=== PATIENT | female | born 1995 | race Hispanic/Latino ===

== ENCOUNTER 2020-07-21 22:37 | Emergency (ER) | payer SELFPAY ==
[2020-07-21] MEDS ORDERED: HYDROCODONE/APAP 5/325 MG TAB ONE (23:15)
--- NOTE | 2020-07-22 00:04 | EDPHYS ---
Physician Documentation [facility] Name: Kelly Mcmahon Age: 24 yrs Sex: Female : 1995 Arrival Date: 07/21/2020 Time: 22:41 Bed 15 Private MD: ED Physician Shawn Brennan HPI: 07/21 23:59 This 24 yrs old Female presents to ER via Ambulatory with complaints of Finger jmm Injury. 23:59 The patient or guardian reports injury, pain. Onset: The symptoms/episode jmm began/occurred acutely, just prior to arrival. Modifying factors: The symptoms are alleviated by nothing, the symptoms are aggravated by nothing. Associated signs and symptoms: Pertinent negatives: fever, numbness distally, tingling distally. This is a 24 year old female with a history of PE, hypothyroidism that presents to the ED with complaints of right 3rd finger pain. Injury occurred while changing clothes. Denies other injury. . 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 - Social history:: Smoking status: Patient denies any tobacco usage or history of. ROS: 23:59 Constitutional: Negative for fever, chills, and weight loss, Cardiovascular: Negative jmm for chest pain, palpitations, and edema, Respiratory: Negative for shortness of breath, cough, wheezing, and pleuritic chest pain. 23:59 MS/extremity: Positive for injury or acute deformity. 23:59 All other systems are negative. Exam: 23:59 Constitutional: This is a well developed, well nourished patient who is awake, alert, jmm and in no acute distress. Head/Face: atraumatic. Eyes: EOMI, no conjunctival erythema appreciated ENT: Moist Mucus Membranes Neck: Trachea midline, Supple Chest/axilla: Normal chest wall appearance and motion. Cardiovascular: Regular rate and rhythm. No edema appreciated Respiratory: Normal respirations, no respiratory distress appreciated Abdomen/GI: Non distended, soft Back: Normal ROM Skin: General appearance color normal 23:59 Musculoskeletal/extremity: right 3rd dip ttp, < 2 sec dist cap refill, NVI. 23:59 Skin: Appearance: Color: normal in color. 23:59 Neuro: Orientation: is normal, Mentation: is normal, Memory: is normal. 23:59 Psych: Behavior/mood is pleasant, cooperative. Vital Signs: 23:00 BP 110 / 84; Pulse 80; Resp 16 S; Temp 99(TE); Pulse Ox 100% on R/A; Weight 65.77 kg bb (R); Height 5 ft. 4 in. (162.56 cm) (R); Pain 710; 23:00 Body Mass Index 24.89 (65.77 kg, 162.56 cm) bb MDM: 22:55 Patient medically screened. [facility] 07/22 00:02 Data reviewed: vital signs, nurses notes. Counseling: I had a detailed discussion with ramon the patient and/or guardian regarding: the historical points, exam findings, and any diagnostic results supporting the discharge/admit diagnosis, radiology results, the need for outpatient follow up, to return to the emergency department if symptoms worsen or persist or if there are any questions or concerns that arise at home. 07/21 22:56 Order name: Hand Right 3 View XRAY [facility] 07/21 22:56 Order name: Finger Splint; Complete Time: 00:18 [facility] Administered Medications: 07/21 23:03 Drug: [place] 5 mg-325 mg 1 tabs Route: PO; jd3 07/22 00:18 Follow up: Response: No adverse reaction ll2 Disposition: 03:21 Co-signature as Attending Physician, Shwan Brennan MD. rn Disposition: 07/22/20 00:03 Discharged to Home. Impression: Finger Fracture. - Condition is Stable. - Discharge Instructions: Finger Fracture. - Prescriptions for Ultracet 37.5- 325 mg Oral Tablet - take 1 tablet by ORAL route every 6 hours - for up to 5 days; do not exceed 8 tablets per day.; 20 tablet. - Medication Reconciliation Form, Thank You Letter, Antibiotic Education, Prescription Opioid Use form. - Follow up: Private Physician; When: 2 - 3 days; Reason: Recheck today's complaints, Continuance of care, Re-evaluation by your physician. Signatures: Dispatcher [employer] EDRafael Orantes PA PA jmm Ballard, Falguni, RN RN Shawn Pelayo MD MD rn Davies, Jonathon, RN RN jd3 Lanette Linares RN RN ll2 Corrections: (The following items were deleted from the chart) 00:18 00:03 07/22/2020 00:03 Discharged to Home. Impression: Finger Fracture. Condition is ll2 Stable. Forms are Medication Reconciliation Form, Thank You Letter, Antibiotic Education, Prescription Opioid Use. Follow up: Private Physician; When: 2 - 3 days; Reason: Recheck today's complaints, Continuance of care, Re-evaluation by your physician. ramon
--- NOTE | 2020-07-22 00:04 | ER ---
Nurse's Notes [facility] Name: Kelly Mcmahon Age: 24 yrs Sex: Female : 1995 Arrival Date: 07/21/2020 Time: 22:41 Bed 15 Private MD: Diagnosis: Finger Fracture Presentation: 07/21 23:00 Chief complaint: Patient states: she accidently caught her right middle finger in her bb shirt and injured it now it is swollen and painful. Coronavirus screen: At this time, the client does not indicate any symptoms associated with coronavirus-19. Ebola Screen: No symptoms or risks identified at this time. Initial Sepsis Screen: Does the patient meet any 2 criteria? No. Patient's initial sepsis screen is negative. Does the patient have a suspected source of infection? No. Patient's initial sepsis screen is negative. Risk Assessment: Do you want to hurt yourself or someone else? Patient reports no desire to harm self or others. Onset of symptoms was July 21, 2020. 23:00 Method Of Arrival: Ambulatory bb 23:00 Acuity: DUNG 4 bb Triage Assessment: 07/22 00:16 General: Appears in no apparent distress. Pain:. ll2 00:17 Injury Description: pt fell while middle finger was stuck inside shirt. 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 - Social history:: Smoking status: Patient denies any tobacco usage or history of. Screenin/22 00:16 Abuse screen: Denies threats or abuse. Nutritional screening: No deficits noted. ll2 Tuberculosis screening: No symptoms or risk factors identified. Fall Risk None identified. Assessment: 07/21 23:15 General: Appears in no apparent distress. uncomfortable, Behavior is calm, cooperative, jd3 appropriate for age. Pain: Complains of pain in palmar aspect of distal phalanx of right middle finger Quality of pain is described as sharp, tender. Neuro: Level of Consciousness is awake, alert, obeys commands, Oriented to person, place, time, situation. Cardiovascular: Denies Capillary refill < 3 seconds Patient's skin is warm and dry. Respiratory: Airway is patent Respiratory effort is even, unlabored, Respiratory pattern is regular, symmetrical, Denies cough, shortness of breath. GI: No signs and/or symptoms were reported involving the gastrointestinal system. : No signs and/or symptoms were reported regarding the genitourinary system. EENT: No signs and/or symptoms were reported regarding the EENT system. Derm: Skin is intact, Skin is dry, Skin is normal, Skin temperature is warm Bruising that is dark purple, on palmar aspect of distal phalanx of right middle finger. Musculoskeletal: Circulation, motion, and sensation intact. Range of motion: intact in all extremities. 23:55 Reassessment: Patient appears in no apparent distress at this time. Patient and/or jd3 family updated on plan of care and expected duration. Pain level reassessed. Patient is alert, oriented x 3, equal unlabored respirations, skin warm/dry/pink. awaiting X-ray results. Vital Signs: 23:00 BP 110 / 84; Pulse 80; Resp 16 S; Temp 99(TE); Pulse Ox 100% on R/A; Weight 65.77 kg bb (R); Height 5 ft. 4 in. (162.56 cm) (R); Pain 7/10; 23:00 Body Mass Index 24.89 (65.77 kg, 162.56 cm) bb ED Course: 22:41 Patient arrived in ED. am2 22:49 Rafael Wyman PA is PHCP. [facility] 22:49 Shawn Brennan MD is Attending Physician. [facility] 22:54 Tato Paredes RN is Primary Nurse. jd3 23:13 Triage completed. bb 23:15 Arm band placed on Patient placed in an exam room, on a stretcher, on pulse oximetry. bb Family accompanied patient. 07/22 00:10 Hand Right 3 View XRAY In Process Unspecified. EDMS 00:16 Patient has correct armband on for positive identification. Call light in reach. Side ll2 rails up X 1. Adult w/ patient. Pulse ox on. NIBP on. 00:16 No provider procedures requiring assistance completed. Patient did not have IV access ll2 during this emergency room visit. Administered Medications: 07/21 23:03 Drug: [place] 5 mg-325 mg 1 tabs Route: PO; jd3 07/22 00:18 Follow up: Response: No adverse reaction ll2 Outcome: 00:03 Discharge ordered by MD. navarro 00:17 Discharged to home ambulatory. ll2 00:17 Condition: stable 00:17 Discharge instructions given to patient, family, Instructed on discharge instructions, follow up and referral plans. medication usage, Demonstrated understanding of instructions, follow-up care, medications, Prescriptions given X 1. 00:18 Patient left the ED. ll2 Signatures: Dispatcher [employer] EDMS Rafael Wyman PA PA jmm Ballard, Brenda, RN RN Marylou Barton Jonathon, RN RN jLanette Branch RN RN ll2
[2020-07-22 00:32] VITALS: BP 110/84; TEMP 99; O2SAT 100
--- NOTE | 2020-07-22 08:07 | RAD REPORT ---
EXAM DESCRIPTION: RAD - Hand Right 3 View - 07/22/2020 12:03 am CLINICAL HISTORY: Right hand pain status post injury FINDINGS: Small transverse lucency is present in the base third distal phalanx seen on frontal view. This is equivocal for a small nondisplaced fracture. No dislocation
== END 2020-07-22 00:18 | disposition home or self-care (01) ==
LOC: EDBD 22:37 → ER 22:37
PROC: 2W3JX1Z Immobilization of Right Finger using Splint (ICD-10-PCS; principal; 2020-07-22)
DX: S62.632A Displaced fracture of distal phalanx of right middle finger, initial encounter for closed fracture (principal); E03.9 Hypothyroidism, unspecified; Z88.6 Allergy status to analgesic agent
CPT/HCPCS: 99284

== ENCOUNTER 2023-01-24 00:24 | Emergency (ER) | payer SELFPAY ==
[2023-01-24] MEDS ORDERED: LIDOCAINE VISCOUS 2% SOLN 15 ML UDC ONE (01:16)
--- NOTE | 2023-01-24 01:16 | ER ---
Nurse's Notes [facility] Name: Kelly Mcmahon Age: 27 yrs Sex: Female : 1995 Arrival Date: 01/24/2023 Time: 00:24 Bed IW1 Private MD: Diagnosis: Unspecified lesions of oral mucosa Presentation: 01/24 00:59 Chief complaint: Patient states: My mouth is sore. I cant see it very well in the kd3 mirror. It feels sore on the inside on my lower lip. It started around 3 or 4 today. I did not bite myself or anything. Coronavirus screen: Vaccine status: Patient reports being unvaccinated. Ebola Screen: No symptoms or risks identified at this time. 00:59 Method Of Arrival: Ambulatory kd3 01:05 Initial Sepsis Screen: Does the patient meet any 2 criteria? No. Patient's initial kd3 sepsis screen is negative. Does the patient have a suspected source of infection? No. Patient's initial sepsis screen is negative. Risk Assessment: Do you want to hurt yourself or someone else? Patient reports no desire to harm self or others. Onset of symptoms was January 24, 2023. 01:05 Acuity: DUNG 4 kd3 Triage Assessment: 01:04 General: Appears in no apparent distress. Behavior is calm, cooperative. Pain: kd3 Complains of pain in mouth. 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 - Social history:: Smoking status: Patient denies any tobacco usage or history of. Screenin: [facility] ED Fall Risk Assessment (Adult) History of falling in the last 3 months, kd3 including since admission No falls in past 3 months (0 pts) Confusion or Disorientation No (0 pts) Intoxicated or Sedated No (0 pts) Impaired Gait No (0 pts) Mobility Assist Device Used No (0 pt) Altered Elimination No (0 pt) Score/Fall Risk Level 0 - 2 = Low Risk Maintained a safe environment. Abuse screen: Denies threats or abuse. Denies injuries from another. Nutritional screening: No deficits noted. Tuberculosis screening: No symptoms or risk factors identified. Vital Signs: 00:59 Weight 69.85 kg; Height 5 ft. 4 in. ; kd3 01:05 BP 122 / 84; Pulse 79; Resp 16; Pulse Ox 99% on R/A; kd3 01:06 Temp 98.5(O); kd3 00:59 Body Mass Index 26.43 (69.85 kg, 162.56 cm) kd3 ED Course: 00:32 Patient arrived in ED. ag3 00:44 Abhay Garcia PA is PHCP. cp 00:44 Magdaleno Babb MD is Attending Physician. cp 01:05 Triage completed. kd3 01:06 Arm band placed on left wrist. kd3 01:12 Frances Meyers RN is Primary Nurse. kd3 01:23 Patient has correct armband on for positive identification. kd3 01:23 No provider procedures requiring assistance completed. Patient did not have IV access kd3 during this emergency room visit. Administered Medications: 01:12 Drug: Viscous Lidocaine Mucous Membrane Liquid (4 %) 5 ml Route: Mucous Membrane; kd3 Medication: 01:23 VIS not applicable for this client. kd3 Outcome: 01:15 Discharge ordered by . cp 01:23 Discharged to home ambulatory. kd3 01:23 Condition: stable 01:23 Discharge instructions given to patient, Instructed on discharge instructions, follow up and referral plans. Demonstrated understanding of instructions, follow-up care, medications, Prescriptions given X 1. 01:23 Patient left the ED. kd3 Signatures: Abhay Garcia PA PA Flor Richter ag3 Frances Meyers, RN RN kd3
--- NOTE | 2023-01-24 01:16 | EDPHYS ---
Physician Documentation [facility] Name: Kelly Mcmahon Age: 27 yrs Sex: Female : 1995 Arrival Date: 01/24/2023 Time: 00:24 Bed IW1 Private MD: ED Physician Magdaleno Babb HPI: 01/24 01:10 This 27 yrs old Female presents to ER via Ambulatory with complaints of Mouth cp Swelling. 01:10 The patient presents with a lesion, redness, swelling. The problem is located in the cp inner lower lip. Onset: The symptoms/episode began/occurred today. Associated signs and symptoms: Pertinent positives: pain, Pertinent negatives: chills, dysphagia, fever, inability to eat, vomiting. Severity of symptoms: in the emergency department the symptoms are unchanged, despite home interventions. 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 - Social history:: Smoking status: Patient denies any tobacco usage or history of. ROS: 01:12 Constitutional: Negative for body aches, chills, fever, poor PO intake. cp 01:12 Eyes: Negative for injury, pain, redness, and discharge. cp 01:12 ENT: Negative for drainage from ear(s), ear pain, sore throat, difficulty swallowing, difficulty handling secretions. 01:12 Respiratory: Negative for cough, shortness of breath, wheezing. 01:12 Abdomen/GI: Negative for abdominal pain, nausea, vomiting, and diarrhea. 01:12 Neuro: Negative for headache. 01:12 All other systems are negative. Exam: 01:13 Constitutional: The patient appears in no acute distress, alert, awake, comfortable, cp non-toxic, well developed, well nourished. 01:13 Head/Face: Normocephalic, atraumatic. cp 01:13 ENT: External ear(s): are unremarkable, Ear canal(s): are normal, clear, TM's: dullness, bilaterally, Mouth: Lips: moist, Oral mucosa: noted erythematous ulcer type lesion inner lower left side lip with mild swelling, pain to palpation, Posterior pharynx: is normal, airway is patent, no erythema, no exudate, Tonsils: are normal in appearance. 01:13 Neck: Lymph nodes: no appreciated lymphadenopathy. 01:13 Cardiovascular: Rate: normal. 01:13 Respiratory: the patient does not display signs of respiratory distress, Respirations: normal. 01:13 Skin: cellulitis, is not appreciated. Vital Signs: 00:59 Weight 69.85 kg; Height 5 ft. 4 in. ; kd3 01:05 BP 122 / 84; Pulse 79; Resp 16; Pulse Ox 99% on R/A; kd3 01:06 Temp 98.5(O); kd3 00:59 Body Mass Index 26.43 (69.85 kg, 162.56 cm) kd3 MDM: 01:07 Patient medically screened. cp 01:15 Data reviewed: vital signs, nurses notes, and as a result, I will discharge patient. cp Administered Medications: 01:12 Drug: Viscous Lidocaine Mucous Membrane Liquid (4 %) 5 ml Route: Mucous Membrane; kd3 Disposition Summary: 01/24/23 01:15 Discharge Ordered Location: Home cp Problem: new cp Symptoms: have improved cp Condition: Stable cp Diagnosis - Unspecified lesions of oral mucosa cp Followup: cp - With: Private Physician - When: 2 - 3 days - Reason: Worsening of condition Discharge Instructions: - Discharge Summary Sheet cp - Oral Ulcers cp Forms: - Medication Reconciliation Form cp - Thank You Letter cp - Antibiotic Education cp - Prescription Opioid Use cp Prescriptions: - fluocinonide 0.05 % Topical gel - apply 1 application by TOPICAL route 2-3 times daily for 7 days apply to oral cp lesion as directed; 15 gram; Refills: 0, Product Selection Permitted Signatures: Abhay Garcia PA PA cp Doucette, Kyli, RN RN kd3
[2023-01-24 02:27] VITALS: BP 122/84; O2SAT 99
[2023-01-24 02:28] VITALS: TEMP 98.5
== END 2023-01-24 01:23 | disposition home or self-care (01) ==
LOC: ER 00:24
DX: K13.70 Unspecified lesions of oral mucosa (principal); E03.9 Hypothyroidism, unspecified; Z88.5 Allergy status to narcotic agent
CPT/HCPCS: 99283

== ENCOUNTER 2023-04-15 03:33 | Emergency (ER) | payer SELFPAY ==
[2023-04-15 04:24] LABS: Specific Gravity 1.037 (1.005-1.030)
[2023-04-15 04:32] LABS: Specific Gravity > 1.030 (1.005-1.030); Urine Bacteria <20 /HPF (<20); Urine Bilirubin NEGATIVE (Negative); Urine Blood Trace (Negative); Urine Clarity Turbid (Clear); Urine Color Yellow (Yellow); Urine Glucose NEGATIVE (Negative); Urine Mucus 4+ /HPF (None Seen); Urine Protein 2+ (Negative); Urine Urobilinogen 1+ (Normal); Urine pH 5.5 (5.0-7.0)
[2023-04-15 04:33] LABS: Absolute Lymphocytes (CBC) 1.3 K/uL (0.7-4.9); Hematocrit 40.8 % (36.0-45.0); Lymphocytes % 18.8 % (15.3-44.8); MPV 8.6 fL (7.6-11.3); RBC Red Blood Cell Count 4.38 M/uL (3.86-4.86)
[2023-04-15 04:53] LABS: Albumin 4.1 g/dL (3.4-5.0); Bilirubin Total 0.6 mg/dL (0.2-1.0); Protein, Total 8.2 g/dL (6.4-8.2)
--- NOTE | 2023-04-15 06:07 | EDPHYS ---
Physician Documentation [facility] Name: Kelly Mcmahon Age: 27 yrs Sex: Female : 1995 Arrival Date: 04/15/2023 Time: 03:33 Bed 5 Private MD: ED Physician Marcial Rodriguez HPI: 04/15 05:20 This 27 yrs old Female presents to ER via Ambulatory with complaints of rt Abdominal Pain. 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 Patient presents to the ED with a lower rt abdominal pain as well as vaginal bleeding starting last night. The pain radiates to the right. She denies nausea, vomiting, other acute complaints at this time. Symptoms are aching nature, nonradiating, moderate severity, no other aggravating or elevating factors. 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 - Social history:: Smoking status: unknown. ROS: 05:21 Constitutional: Negative for fever, chills, and weight loss, Cardiovascular: Negative rt for chest pain, palpitations, and edema, Respiratory: Negative for shortness of breath, cough, wheezing, and pleuritic chest pain, Skin: Negative for injury, rash, and discoloration, Neuro: Negative for headache, weakness, numbness, tingling, and seizure, Psych: Negative for depression, anxiety, suicide ideation, homicidal ideation, and hallucinations. 05:21 Abdomen/GI: Positive for abdominal pain, Negative for nausea, vomiting, and diarrhea. 05:21 : Positive for vaginal bleeding, Negative for burning with urination. Exam: 05:21 Constitutional: This is a well developed, well nourished patient who is awake, alert, rt and in no acute distress. Head/Face: Normocephalic, atraumatic. Chest/axilla: Normal chest wall appearance and motion. Nontender with no deformity. No lesions are appreciated. Cardiovascular: Regular rate and rhythm with a normal S1 and S2. No gallops, murmurs, or rubs. Normal PMI, no JVD. No pulse deficits. Respiratory: Lungs have equal breath sounds bilaterally, clear to auscultation and percussion. No rales, rhonchi or wheezes noted. No increased work of breathing, no retractions or nasal flaring. Skin: Warm, dry with normal turgor. Normal color with no rashes, no lesions, and no evidence of cellulitis. MS/ Extremity: Pulses equal, no cyanosis. Neurovascular intact. Full, normal range of motion. 05:21 Abdomen/GI: Tenderness to the suprapubic to right lower quadrant, no rebound, guarding, distention. Vital Signs: 03:54 BP 132 / 90; Pulse 81; Resp 19; Temp 98.2(TE); Pulse Ox 99% on R/A; Weight 51.26 kg; kd3 Height 5 ft. 4 in. ; 05:51 BP 122 / 88; Pulse 85; Resp 18 S; Pulse Ox 99% on R/A; as6 03:54 Body Mass Index 19.40 (51.26 kg, 162.56 cm) kd3 MDM: 03:47 Patient medically screened. rt 06:07 Differential diagnosis: UTI, pyelonephritis, ureteral stone, appendicitis, ovarian rt cyst, ovarian torsion, unspecified abdominal pain. Data reviewed: vital signs, nurses notes, lab test result(s), radiologic studies. Independent interpretation of the following test(s) in the Emergency Department CT Scan: My interpretation is No bowel obstruction syndrome interpretation of the CT scan images. Test considered but Not performed: Ultrasound Symptoms are not consistent with an ovarian torsion, ultrasound not indicated. Counseling: I had a detailed discussion with the patient and/or guardian regarding: the historical points, exam findings, and any diagnostic results supporting the discharge/admit diagnosis, lab results, radiology results, the need for outpatient follow up. ED course: Patient symptoms resolved without any treatment. Discussed the results of negative work-up with the patient. She is to follow-up as an outpatient. She understands that she may return anytime for worsening symptoms or new concerning symptoms.. 04/15 04:09 Order name: CBC with Diff; Complete Time: 04:54 rt 04/15 04:09 Order name: CMP; Complete Time: 04:54 rt 04/15 04:09 Order name: Lipase; Complete Time: 04:54 rt 04/15 04:09 Order name: Test, Urine; Complete Time: 04:54 rt 04/15 04:09 Order name: Urinalysis w/ reflexes; Complete Time: 04:54 rt 04/15 04:58 Order name: CT Abd/Pelvis - IV Contrast Only rt 04/15 04:09 Order name: IV Saline Lock; Complete Time: 04:26 rt 04/15 04:09 Order name: Labs collected and sent; Complete Time: 04:26 rt Administered Medications: No medications were administered Disposition Summary: 04/15/23 06:07 Discharge Ordered Location: Home rt Problem: new rt Symptoms: are resolved rt Condition: Stable rt Diagnosis - Abdominal pain, unspecified rt Followup: rt - With: Private Physician - When: 2 - 3 days - Reason: Discharge Instructions: - Discharge Summary Sheet rt - Abdominal Pain, Adult rt Forms: - Medication Reconciliation Form rt - Thank You Letter rt - Antibiotic Education rt - Prescription Opioid Use rt - Patient Portal Instructions rt Signatures: Dispatcher [employer] Frances Bull RN RN kd3 Marcial Rodriguez MD MD rt
--- NOTE | 2023-04-15 06:07 | ER ---
Nurse's Notes [facility] Name: Kelly Mcmahon Age: 27 yrs Sex: Female : 1995 Arrival Date: 04/15/2023 Time: 03:33 Bed 5 Private MD: Diagnosis: Abdominal pain, unspecified Presentation: 04/15 03:54 Chief complaint: Patient states: I have been having some lower abdominal cramping. kd3 Ebola Screen: No symptoms or risks identified at this time. Initial Sepsis Screen: Does the patient meet any 2 criteria? No. Patient's initial sepsis screen is negative. Does the patient have a suspected source of infection? No. Patient's initial sepsis screen is negative. Risk Assessment: Do you want to hurt yourself or someone else? Patient reports no desire to harm self or others. Onset of symptoms was April 15, 2023. 03:54 Method Of Arrival: Ambulatory kd3 03:54 Acuity: DUNG 3 kd3 04:11 Chief complaint: Patient states: I have had some vaginal bleeding and i have had a cyst kd3 before. Coronavirus screen: Vaccine status: unknown. Triage Assessment: 03:57 General: Appears uncomfortable, Behavior is calm, cooperative. Pain: Complains of pain kd3 in abdomen. GI: Abdomen is non-distended. 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 - Social history:: Smoking status: unknown. Screenin:27 [facility] ED Fall Risk Assessment (Adult) Score/Fall Risk Level 0 - 2 = Low Risk. Abuse as6 screen: Denies threats or abuse. Denies injuries from another. Nutritional screening: No deficits noted. Tuberculosis screening: No symptoms or risk factors identified. Assessment: 04:30 General: Appears in no apparent distress. Behavior is calm, cooperative. Pain: as6 Complains of pain in right lower quadrant and left lower quadrant Quality of pain is described as crampy. Neuro: Level of Consciousness is awake, alert, obeys commands, Oriented to person, place, time, situation. Cardiovascular: Capillary refill < 3 seconds Patient's skin is warm and dry. Respiratory: Respiratory effort is even, unlabored, Respiratory pattern is regular, symmetrical. GI: Abd is soft Reports lower abdominal pain, cramping. Vital Signs: 03:54 BP 132 / 90; Pulse 81; Resp 19; Temp 98.2(TE); Pulse Ox 99% on R/A; Weight 51.26 kg; kd3 Height 5 ft. 4 in. ; 05:51 BP 122 / 88; Pulse 85; Resp 18 S; Pulse Ox 99% on R/A; as6 03:54 Body Mass Index 19.40 (51.26 kg, 162.56 cm) kd3 ED Course: 03:36 Patient arrived in ED. ja2 03:42 Marcial Rodriguez MD is Attending Physician. rt 03:57 Triage completed. kd3 03:57 Arm band placed on right wrist. kd3 04:19 Fernandez Gamez, RN is Primary Nurse. as6 04:26 Inserted saline lock: 20 gauge in right antecubital area, using aseptic technique. as6 Blood collected. 04:27 Bed in low position. Call light in reach. Side rails up X 1. as6 05:34 CT Abd/Pelvis - IV Contrast Only In Process Unspecified. EDMS 06:10 Provided Education on: discharge teaching. as6 06:11 No provider procedures requiring assistance completed. IV discontinued, intact, as6 bleeding controlled, No redness/swelling at site. Pressure dressing applied. Administered Medications: No medications were administered Medication: 04:31 VIS not applicable for this client. as6 Outcome: 06:07 Discharge ordered by MD. rt 06:11 Discharged to home ambulatory. as6 06:11 Condition: stable 06:11 Discharge instructions given to patient, Instructed on discharge instructions, follow up and referral plans. Demonstrated understanding of instructions, follow-up care. 06:11 Patient left the ED. as6 Signatures: Dispatcher [employer] EDMS Sky Alis ja2 Fernandez Gamez, CHRIS RN as6 Frances Meyers RN RN kd3 Marcial Rodriguez MD MD rt
[2023-04-15 06:33] VITALS: TEMP 98.2; O2SAT 99
[2023-04-15 06:35] VITALS: BP 122/88
--- NOTE | 2023-04-15 09:39 | RAD REPORT ---
EXAM DESCRIPTION: CT - Abdomen Pelvis W Contrast - 04/15/2023 7:08 am CLINICAL HISTORY: The patient is 27 years old and is Female; LOWER ABD PAIN TECHNIQUE: Axial computed tomography images of the abdomen and pelvis with intravenous contrast. S agittal and coronal reformatted images were created and reviewed. This CT exam was performed using one or more of the following dose reduction techniques: automated exposure control, adjustment of t he mA and/or kV according to patient size, and/or use of iterative reconstruction technique. COMPARISON: October 15, 2022. FINDINGS: Lung bases: Unremarkable. No mass. No consolidation. ABDOMEN: Liver: Unremarkable. No mass. Gallbladder and bile ducts: Unremarkable. No calcified stones. No ductal dilation. Pancreas: No findings to suggest acute pancreatitis. No mass visualized. No ductal dilation. Spleen: Unremarkable. No splenomegaly. Adrenals: Unremarkable. No mass. Kidneys and ureters: Unremarkable. No solid mass. No hydronephrosis. Stomach and bowel: No bowel dilatation or obstruction. No bowel wall thickening. Stomach is unremarkable. PELVIS: Appendix: The visualized appendix is normal. No pericecal inflammation to suggest acute appendici tis. Bladder: Bladder is not well distended. No stones. Reproductive: Retroverted uterus. No adnexal mass visualized. ABDOMEN and PELVIS: Intraperitoneal space: Unremarkable. No free air. No significant fluid collection. Bones/joints: No acute fracture. No dislocation. Soft tissues: Unremarkable. Vasculature: Unremarkable. No abdominal aortic aneurysm. Lymph nodes: No pathologically enlarged lymph nodes. IMPRESSION: No acute obstructive or inflammatory process identified. Normal appendix. Electronically signed by: Marisol Hughes MD 04/15/2023 5:55 AM CDT Due to temporary technical issues with the PACS/Fluency reporting system, reports are being signed by the in house radiologists without review as a courtesy to insure prompt reporting. The interpreting radiologist is fully responsible for the content of the report.
== END 2023-04-15 06:11 | disposition home or self-care (01) ==
LOC: ER 03:33
DX: R10.31 Right lower quadrant pain (principal)
CPT/HCPCS: 36415; 74177; 80053; 81001; 81025; 83690; 85025; 99284; Q9967